=== PATIENT | female | born 1995 | race African-American/Black ===

== ENCOUNTER 2016-05-16 05:23 | Emergency (ER) | payer MEDICAID, OTHER ==
[~2016-05-16] VITALS: Ht 160 cm; Wt 116.0 kg
[~2016-05-16 05:23] MED LIST: BACT2OIN TOP; BACT800T5 PO; ONDA1TAB16 PO; SYMB80AE INH
[2016-05-16 05:35] VITALS: BP 191/84; PULSE 101; RESP 18; TEMP 98; O2SAT 98
[2016-05-16] MEDS ORDERED: diabetic medication PO (05:49)
[2016-05-16] MEDS ORDERED: SYMB80AE INH (05:49)
[2016-05-16 05:50] VITALS: BP 174/75; PULSE 83; RESP 16; TEMP 98.6; O2SAT 100
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
[2016-05-16 07:35] LABS: BACTERIA, URINE MANY /hpf; BLOOD, URINE TRACE (NEG); GLUCOSE,URINE 300 mg/dL (NEG); HYALINE CAST, URINE 2 /lpf (RARE); KETONE, URINE NEG (NEG); MUCUS URINE MOD /lpf (OCC); NITRITE,URINE NEG (NEG); SQUAMOUS EPITHELIAL CELL URINE 10 /hpf (0-5); URINE COLOR YELLOW (YELLW/STRAW)
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
[2016-05-16 07:36] LABS: COMMENT (UR) CULTURE INDICATED; CULTURE IF INDICATED CULTURE INDICATED
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
[2016-05-16 08:15] VITALS: BP 140/66; PULSE 88; RESP 16; O2SAT 99
[2016-05-16] MEDS ORDERED: ROBA750T PO (08:20)
[2016-05-16] MEDS ORDERED: MOBI15TA PO (08:20)
--- NOTE | 2016-05-16 08:20 | PD ---
Physical Exam Narrative Patient was seen by ED physician and signed out to me. Data Data Last Documented VS Vital Signs Date Time Temp Pulse Resp B/P Pulse Ox O2 Delivery O2 Flow Rate FiO2 05/16/16 05:50 98.6 83 16 174/[address] Brain W/O Iv Contrast(Rout) (05/16/16 ) Ct Cerv Spine W/O Contrast (05/16/16 ) Chest, Single Ap (05/16/16 ) Knee, Ltd (1 Or 2vws) (05/16/16 ) Ankle, Limited (Ap&Lat) (05/16/16 ) Electrocardiogram (05/16/16 ) Ed Urine Pregnancytest Poc (05/16/16 06:15) Urinalysis - C+S If Indicated (05/16/16 07:05) Urine Culture (05/16/16 06:15) Labs Laboratory Tests Test 05/16/16 06:15 Urine Color YELLOW Urine Turbidity HAZY Urine pH 5.0 Urine Specific [place] 1.025 Urine Protein 30 mg/dL Urine Glucose (UA) 300 mg/dL Urine Ketones NEG mg/dL Urine Occult Blood TRACE Urine Nitrite NEG Urine Bilirubin NEG Urine Urobilinogen 2.0 MG/DL Urine Leukocyte Esterase LARGE Urine RBC 21 /hpf Urine WBC 84 /hpf Urine Squamous Epithelial 10 /hpf Cells Urine Bacteria MANY /hpf Urine Hyaline Casts 2 /lpf Urine Mucus MOD /lpf Microscopic Urinalysis Comment CULTURE INDICATED MDM Supervised Visit with LULÚ: No Interpretation(s) Last Impressions Knee X-Ray 05/16/16 0000 Signed Impressions: Service Date/Time: Monday, May 16, 2016 06:44 - CONCLUSION: 1. There is no evidence of acute fracture. Shine Richards MD Head CT 05/16/16 0000 Signed Impressions: Service Date/Time: Monday, May 16, 2016 07:14 - CONCLUSION: Normal examination. Ezra Das MD Chest X-Ray 05/16/16 0000 Signed Impressions: Service Date/Time: Monday, May 16, 2016 06:40 - CONCLUSION: 1. No acute cardiopulmonary disease. Shine Richards MD Cervical Spine CT 05/16/16 0000 Signed Impressions: Service Date/Time: Monday, May 16, 2016 07:16 - CONCLUSION: Negative examination Ezar Das MD Ankle X-Ray 05/16/16 0000 Signed Impressions: Service Date/Time: Monday, May 16, 2016 06:42 - CONCLUSION: 1. There is no evidence of acute fracture. Shine Richards MD Diagnosis Primary Impression: Closed head injury Qualified Code: S09.90XA - Closed head injury, initial encounter Additional Impressions: Cervical strain Qualified Code: S16.1XXA - Cervical strain, initial encounter Multiple contusions Patient Instructions: General Instructions Additional Instruction: Take medications as needed for pain. Follow-up with personal physician and orthopedist. Head trauma instructions given. Med/Other Pt SpecificInfo: Prescription(s) given Scripts Methocarbamol (Robaxin)750 Mg [id number] Mg PO QID #40 TAB Prov:Neal Howe MD 05/16/16 Meloxicam (Mobic)15 Mg Tab15 Mg PO DAILY #20 TAB Prov:Neal Howe MD 05/16/16 Disposition: 01 DISCHARGE HOME Condition: Stable Neal Howe MD May 16, 2016 08:20
--- NOTE | 2016-05-17 16:39 | EKG ---
Date Performed: 05/16/2016 Time Performed: 06:48:43 PTAGE: 21 years EKG: Sinus rhythm Within normal limits Compared to previous tracing, HR is slower, otherwise no significant change BOR DERLINE ECG PREVIOUS TRACING : 06/26/2014 18.42 DOCTOR: Brain Hernández Interpretating Date/Time 05/17/2016 16:38:22
== END 2016-05-16 08:55 | disposition home or self-care (01) ==
LOC: NEPC 05:23
DX: S09.90XA Unspecified injury of head, initial encounter (principal); S16.1XXA Strain of muscle, fascia and tendon at neck level, initial encounter; B96.89 Other specified bacterial agents as the cause of diseases classified elsewhere; R94.31 Abnormal electrocardiogram [ECG] [EKG]; V49.3XXA Car occupant (driver) (passenger) injured in unspecified nontraffic accident, initial encounter
CPT/HCPCS: 70450; 71010; 72125; 73560; 73600; 81001; 84703; 87086; 93005

== ENCOUNTER 2016-05-16 11:39 | Emergency (ER) | payer MEDICAID, OTHER ==
[~2016-05-16] VITALS: Ht 160 cm; Wt 105.0 kg
[~2016-05-16 11:39] MED LIST changes: +MOBI15TA PO; +ROBA750T PO; +diabetic medication PO
[2016-05-16 11:42] VITALS: BP 152/93; PULSE 88; RESP 15; TEMP 97.8; O2SAT 98
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
[2016-05-16] MEDS ORDERED: IBUPROFEN 600 MG TAB PO ONE (13:00)
== END 2016-05-16 13:18 | disposition home or self-care (01) ==
LOC: NEPB 11:39
DX: R07.9 Chest pain, unspecified (principal); S93.402A Sprain of unspecified ligament of left ankle, initial encounter; V49.9XXA Car occupant (driver) (passenger) injured in unspecified traffic accident, initial encounter
CPT/HCPCS: 99283; E0113; L1906

== ENCOUNTER 2017-03-23 21:31 | Emergency (ER) | payer MEDICAID, OTHER ==
[~2017-03-23 21:31] MED LIST changes: -BACT2OIN TOP; -BACT800T5 PO; -ONDA1TAB16 PO
[2017-03-23 21:44] VITALS: BP 217/86; PULSE 113; RESP 20; TEMP 101.4; O2SAT 97
[2017-03-23 23:48] VITALS: BP 120/85; PULSE 103; RESP 15; TEMP 101.2; O2SAT 98
--- NOTE | 2017-03-24 00:25 | PD ---
HPI Chief Complaint: Respiratory Symptoms Time Seen by Provider: 00:22 Travel History International Travel<30 days: No Contact w/Intl Traveler<30days: No Traveled to known affect area: No History of Present Illness HPI The patient is a 22-year-old female who has a history of asthma that started with chest tightness and fever yesterday morning. She has a cough and a mild headache. She also has a sore throat. PFSH Past Medical History Asthma: Yes Heart Rhythm Problems: Yes (HEART MURMUR AN INFANT) Cancer: No Cardiovascular Problems: Yes High Cholesterol: No Chest Pain: No Congestive Heart Failure: No COPD: No Diabetes: Yes Patient Takes Glucophage: No Diminished Hearing: No Endocrine: No Gastrointestinal Disorders: No Genitourinary: No Hypertension: No Immune Disorder: No Implanted Vascular Access Dvce: No Musculoskeletal: No Neurologic: No Psychiatric: No Reproductive: No Respiratory: Yes (ASTHMA) Immunizations Current: Yes Pneumonia: Yes Sickle Cell Disease: No Sleep Apnea: No Thyroid Disease: No Tetanus Vaccination: < 5 Years Influenza Vaccination: Yes ?: Not LMP: MORE THAN 5 WEEKS AGO : 1 Para: 1 Miscarriage: 0 : 0 Past Surgical History Surgical History: No Previous Surgery Other Surgery: Yes (keloid removed from r. face) Social History Alcohol Use: No (denies) Tobacco Use: No (denies) Substance Use: No Allergies-Medications (Allergen,Severity, Reaction): Coded Allergies: amoxicillin (Unverified Allergy, Severe, Rash, 11/11/16) Reported Meds & Prescriptions Reported Meds & Active Scripts Active Prednisone 50 Mg Tab 50 Mg PO BID Proair Hfa 8.5 GM Inh (Albuterol Sulfate) 90 Mcg/Act Aer 2 Puff INH Q4-6H PRN 108 mcg/actuation Robaxin (Methocarbamol) 750 Mg Tab 750 Mg PO QID Mobic (Meloxicam) 15 Mg Tab 15 Mg PO DAILY Reported [diabetic medication] PO Symbicort Inh (Budesonide/Formoterol Fumarate) 80-4.5 Mcg/Act Aero 2 Puff INH Q12HR Review of Systems Except as stated in HPI: all other systems reviewed are Neg Physical Exam Narrative GENERAL: The patient is alert, oriented 3 in no respiratory distress. Her vital signs show temperature of 101.2, blood pressure 120/85 with heart rate of 103 but otherwise normal. SKIN: Focused skin assessment warm/dry. HEAD: Atraumatic. Normocephalic. EYES: Pupils equal and round. No scleral icterus. No injection or drainage. ENT: No nasal bleeding or discharge. Mucous membranes pink and moist. NECK: Trachea midline. No JVD. CARDIOVASCULAR: Regular rate and rhythm. No murmur appreciated. RESPIRATORY: No accessory muscle use. Clear to auscultation. Breath sounds equal bilaterally. GASTROINTESTINAL: Abdomen soft, non-tender, nondistended. Hepatic and splenic margins not palpable. MUSCULOSKELETAL: No obvious deformities. No clubbing. No cyanosis. No edema. NEUROLOGICAL: Awake and alert. No obvious cranial nerve deficits. Motor grossly within normal limits. Normal speech. PSYCHIATRIC: Appropriate mood and affect; insight and judgment normal. Data Data Last Documented VS Vital Signs Date Time Temp Pulse Resp B/P (MAP) Pulse Ox O2 Delivery O2 Flow Rate FiO2 03/23/17 23:48 101.2 103 15 120/85 (97) 98 Room Air Orders Orders Complete Blood Count With Diff (03/24/17 00:26) Basic Metabolic Panel (Bmp) (03/24/17 00:26) Iv Access Insert/Monitor (03/24/17 00:26) Ecg Monitoring (03/24/17:) Oximetry (03/24/17:) Oxygen Administration (03/24/17:26) Sodium Chloride 0.9% Flush (Ns Flush) (03/24/17 00:30) Methylprednisolone So Succ Inj (Solumedr (03/24/17 00:30) Albuterol-Ipratropium Neb (Duoneb Neb) (03/24/17 00:30) Group A Rapid Strep Screen (03/24/17 00:28) Strep Culture (Group A) (03/24/17 00:45) Labs Laboratory Tests Test 03/24/17 00:45 White Blood Count 9.6 TH/MM3 Red Blood Count 4.91 MIL/MM3 Hemoglobin 13.1 GM/DL Hematocrit 40.8 % Mean Corpuscular Volume 83.2 FL Mean Corpuscular Hemoglobin 26.7 PG Mean Corpuscular Hemoglobin Concent 32.1 % Red Cell Distribution Width 13.1 % Platelet Count 362 TH/MM3 Mean Platelet Volume 8.8 FL Neutrophils (%) (Auto) 75.9 % Lymphocytes (%) (Auto) 14.1 % Monocytes (%) (Auto) 3.8 % Eosinophils (%) (Auto) 1.7 % Basophils (%) (Auto) 4.5 % Neutrophils # (Auto) 7.2 TH/MM3 Lymphocytes # (Auto) 1.4 TH/MM3 Monocytes # (Auto) 0.4 TH/MM3 Eosinophils # (Auto) 0.2 TH/MM3 Basophils # (Auto) 0.4 TH/MM3 CBC Comment DIFF FINAL Differential Comment Blood Urea Nitrogen 10 MG/DL Creatinine 0.81 MG/DL Random Glucose 281 MG/DL Calcium Level 9.5 MG/DL Sodium Level 139 MEQ/L Potassium Level 4.1 MEQ/L Chloride Level 103 MEQ/L Carbon Dioxide Level 27.0 MEQ/L Anion Gap 9 MEQ/L Estimat Glomerular Filtration Rate 105 ML/MIN [place] Medical Decision Making Medical Screen Exam Complete: Yes Emergency Medical Condition: Yes Medical Record Reviewed: Yes Interpretation(s) The CBC is normal. The basic metabolic profile shows a glucose of 281 but is otherwise unremarkable. The group A strep antigen is negative. Differential Diagnosis Pneumonia, bronchitis, acute asthma, viral upper respiratory infection, viral pharyngitis, strep pharyngitis Narrative Course It is now 157 and the patient feels much better and wants to go home. She was sleeping comfortably. She will be prescribed and HFA puffer as well as a tapered course of prednisone over 8 days. Diagnosis Primary Impression: Acute asthma Additional Instructions: As we discussed, the prednisone is taken one tablet twice daily for 4 days followed by one tablet once daily for 4 days. Follow-up with your primary care physician this week. Med/Other Pt SpecificInfo: Prescription(s) given Scripts Prednisone (Prednisone) 50 Mg Tab 50 MG PO BID for X 4 days than daily X 4 days, #12 TAB 0 Refills Prov: Ernie Shore MD 03/24/17 Albuterol 8.5 GM Inh (Proair Hfa 8.5 GM Inh) 90 Mcg/Act Aer 2 PUFF INH Q4-6H Y for SHORTNESS OF BREATH, #1 INHALER 0 Refills 108 mcg/actuation Prov: Ernie Shore MD 03/24/17 Disposition: 01 DISCHARGE HOME Condition: Stable Ernie Shore MD Mar 24, 2017 00:25
[2017-03-24] MEDS ORDERED: methylPREDNISolone SOD SUCC 125 MG/2 ML VIAL IV PUSH ONE (00:30)
[2017-03-24] MEDS ORDERED: SODIUM CHLORIDE 0.9% FLUSH 10 ML FLUSH IVF PRN (00:30)
[2017-03-24] MEDS: RESP: ALBUTEROL 2.5 MG/IPRATROPIUM 0.5 MG NEB (SCH) INH ×2 (00:48→00:49)
[2017-03-24 00:52] LABS: AUTOMATED NEUTROPHIL # 7.2 TH/MM3 (1.8-7.7); BASOPHIL # 0.4 TH/MM3 (0-0.2); BASOPHIL % 4.5 % (0.0-2.0); EOSINOPHIL # 0.2 TH/MM3 (0-0.4); EOSINOPHIL % 1.7 % (0.0-4.0); HEMATOCRIT 40.8 % (35.0-46.0); HEMOGLOBIN 13.1 GM/DL (11.6-15.3); LYMPH % 14.1 % (9.0-44.0); LYMPHOCYTE # 1.4 TH/MM3 (1.0-4.8); MEAN CELL VOLUME 83.2 FL (80.0-100.0); MEAN CORPUSCULAR HEMOGLOBIN 26.7 PG (27.0-34.0); MEAN CORPUSCULAR HGB CONC 32.1 % (32.0-36.0); MEAN PLATELET VOLUME 8.8 FL (7.0-11.0); MONO % 3.8 % (0.0-8.0); MONOCYTE # 0.4 TH/MM3 (0-0.9); NEUT % 75.9 % (16.0-70.0); PLATELET COUNT 362 TH/MM3 (150-450); RED BLOOD COUNT 4.91 MIL/MM3 (4.00-5.30); RED CELL DISTRIBUTION WIDTH 13.1 % (11.6-17.2); WHITE BLOOD COUNT 9.6 TH/MM3 (4.0-11.0)
[2017-03-24 01:02] LABS: CALCIUM 9.5 MG/DL (8.5-10.1)
[2017-03-24 01:06] LABS: CREATININE 0.81 MG/DL (0.50-1.00)
[2017-03-24] MEDS ORDERED: ALBUAER3 INH (01:56)
[2017-03-24] MEDS ORDERED: PRED50 PO (01:56)
[2017-03-24 02:17] VITALS: BP 121/85; TEMP 99
== END 2017-03-24 02:29 | disposition home or self-care (01) ==
LOC: PHED 21:31
DX: J45.909 Unspecified asthma, uncomplicated (principal); E11.9 Type 2 diabetes mellitus without complications
CPT/HCPCS: 80048; 85025; 87081; 87880; 94640; 94664; 96374; 99284; J2930

== ENCOUNTER 2017-08-18 20:45 | Emergency (ER) | payer MEDICAID ==
[~2017-08-18] VITALS: Ht 160 cm; Wt 110.0 kg
[~2017-08-18 20:45] MED LIST changes: +ALBUAER3 INH; -MOBI15TA PO; +PRED50 PO; -ROBA750T PO
== END 2017-08-19 00:51 | disposition left against medical advice (07) ==
LOC: NED 20:45
DX: J45.909 Unspecified asthma, uncomplicated (principal)
CPT/HCPCS: 99281